=== PATIENT | female | born 1950 ===

== ENCOUNTER 2020-11-22 09:14 | Inpatient (IN) ==
--- NOTE | 2020-11-08 16:31 | PAT Medication Instructions ---
Medication Instructions Date of Service November 08, 2020 Home Medications ascorbic acid (vitamin C) [Vitamin C] 500 mg PO BID aspirin 325 mg PO QAM cholecalciferol (vitamin D3) [Vitamin D3] 50 mcg PO QAM propranolol 20 mg PO BID rosuvastatin [Crestor] 5 mg PO QPM turmeric root extract 500 mg PO QPM vitamin E 400 unit PO BID ASK your prescriber and surgeon aspirin 325 mg PO QAM STOP taking 2 weeks before surgery If surgery is within 2 weeks, stop taking as soon as possible. turmeric root extract 500 mg PO QPM vitamin E 400 unit PO BID DO NOT take the morning of surgery ascorbic acid (vitamin C) [Vitamin C] 500 mg PO BID cholecalciferol (vitamin D3) [Vitamin D3] 50 mcg PO QAM Take morning of surgery With a small sip of water, OTHERWISE NOTHING TO EAT OR DRINK AFTER MIDNIGHT: propranolol 20 mg PO BID Take evening before surgery ascorbic acid (vitamin C) [Vitamin C] 500 mg PO BID propranolol 20 mg PO BID rosuvastatin [Crestor] 5 mg PO QPM Other Notes If you have any questions please call us at [phone] or [phone] or [phone] or [phone]
--- NOTE | 2020-11-09 13:21 | Anesthesiology Consultation ---
Date of Service November 09, 2020 Assessment & Plan (1) Encounter for pre-operative examination: COVID Status: As of 11/09 assessment, patient denies travel to endemic area, known exposure/sick contacts, or symptoms of COVID19. Patient instructed that they and their household members must follow strict social distancing guidelines, wear a mask in public and avoid travel/events/gatherings for 14 days prior to surgery. Preoperative COVID19 testing to be completed prior to surgery per surgeon's arrangements (11/16). Patient made aware to self-isolate as much as possible between COVID testing and surgery. Pt is fully vaccinated. Chart Review Chart Review: Acceptable Risk for Surgery and Patient seen in Pre Admission T esting Teaching & Discussion Instructed NPO after midnight before surgery, except medications with 15 cc of water. Medication instructions provided according to the PAT guidelines. History Surgery Operation Date: 11/22/20 07:45 Proposed Procedures p L3-L5 Decompression Fusion, Spinal Cord Monitoring - Olu Nance, Height/Weight Height: 4 ft 11 in Weight: 61.6 kg Allergies Allergy/AdvReac Type Severity Reaction Status Date / Time No Known Allergies Allergy Verified 10/25/20 15:06 Medications Home Medications Medication Instructions Recorded Confirmed Last Taken ascorbic acid (vitamin C) [Vitamin 500 mg PO BID 10/25/20 10/25/20 Unknown C] aspirin 325 mg PO QAM 10/25/20 10/25/20 Unknown cholecalciferol (vitamin D3) 50 mcg PO QAM 10/25/20 10/25/20 Unknown [Vitamin D3] propranolol 20 mg PO BID 10/25/20 10/25/20 Unknown rosuvastatin [Crestor] 5 mg PO QPM 10/25/20 10/25/20 Unknown turmeric root extract 500 mg PO QPM 10/25/20 10/25/20 Unknown vitamin E 400 unit PO BID 10/25/20 10/25/20 Unknown Past Medical History Medical History History of cluster headache reason for propranolol History of migraine headaches HLD (hyperlipidemia) Osteoarthritis Spinal stenosis Exercise / Class Metabolic Activity II 4-5 Yardwork/Stairs/Walk up hill Past Family History Family History Son PONV (postoperative nausea and vomiting) Past Surgical History Surgical History History of hernia repair as a child History of hysterectomy with unilateral oophorectomy History of reduction of closed fracture LUE - as a child History of right-sided carotid endarterectomy History of wisdom tooth extraction S/P trigger finger release Status post carotid endarterectomy R side only. 2005. Past Anesthesia History No Hx of Anesthesia Complications and No Family Hx of Anesthesia Complications (other than son PONV) History of PONV No Hx of PONV and No Hx of Motion Sickness Social History Smoking Status: Current every day smoker tobacco type: cigarettes Smoking cigarettes per day: 1 ppd Do You Dip or Chew Tobacco: No Hx Alcohol Use: Yes Alcohol type: beer alcohol intake frequency: a few times a week Hx Substance Use: No substance use type: does not use Review of Systems Pt denies any recent chest pain, shortness of breath, palpitations, cough, fever, URI, or uncontrolled acid reflux. +seasonal allergies/congestion/itchy swollen eyes Physical Exam Vital Signs BP: 155/93 P: 69bpm SPO2: 96% RA T: 98.6 F R: 16 ENMT Mouth: + dental restorations (few crowns); no chipped teeth and no loose teeth Thyromental Distance: > or= 3.5 Finger Breadths Mallampati Class: II Neck + short neck; neck extension not limited Respiratory normal respiratory effort, lungs clear to auscultation Cardiovascular Rate/Rhythm: regular rate and regular rhythm (with occ ectopic beats) Heart Sounds: no murmur Vessels: no carotid bruit Extremities: no edema Testing Laboratory Results 11/09/20 13:27 11/09/20 13:27 PT 10.2 Seconds (9.0-12.0) 11/09/20 13: INR 1.0 (0.9-1.1) 11/09/20 13: APTT 26.8 Seconds (21.0-31.0) 11/09/20 13: Urine Color Yellow 11/09/20 13:27 Urine Appearance Clear (Clear) 11/09/20 13:27 Urine pH 6.0 (4.5-7.5) 11/09/20 13: Ur Specific [place] 1.013 (1.000-1.030) 11/09/20 13: Urine Protein Negative (Negative) 04/13/21 13:27 Urine Glucose (UA) Negative (Negative) 11/09/20 13:27 Urine Ketones Negative (Negative) 11/09/20 13:27 Urine Nitrite Negative (Negative) 11/09/20 13:27 Ur Leukocyte Esterase Negative (Negative) 11/09/20 13:27 Blood Type A Positive 11/09/20 13:27 Antibody Screen NEGATIVE 11/09/20 13:27 Electrocardiogram Date: 11/09/20 Findings: + NSR @ (63bpm) Chest X-Ray Date: 11/09/20 FINDINGS: PA and lateral chest radiographs are obtained. No prior studies are available for comparison at the time of dictation. The cardiomediastinal silhouette is unremarkable noting atherosclerotic calcification of the thoracic aorta. There is bibasilar scarring/atelectasis. Chronic interstitial thickening is similar to previous. No airspace consolidation or pleural effusion is identified. There is no pneumothorax. The skeletal structures are osteopenic. The bony thorax appears intact. Degenerative change is seen throughout the thoracic spine. Surgical clips are noted in the right neck. IMPRESSION: No active disease in the chest.
--- NOTE | 2020-11-09 14:05 | XRay Report ---
TWO VIEW CHEST CLINICAL HISTORY: Spinal stenosis. Preoperative examination. Hyperlipidemia. FINDINGS: PA and lateral chest radiographs are obtained. No prior studies are available for compariso n at the time of dictation. The cardiomediastinal silhouette is unremarkable noting atherosclerotic calcification of the thoracic aorta. There is bibasilar scarring/atelectasis. Chronic interstitial th ickening is similar to previous. No airspace consolidation or pleural effusion is identified. There i s no pneumothorax. The skeletal structures are osteopenic. The bony thorax appears intact. Degenerati ve change is seen throughout the thoracic spine. Surgical clips are noted in the right neck. IMPRESSION: No active disease in the chest. ACT 112: Negative or not required by law. Electronically signed by: Luis Miguel Dominguez M.D. 11/09/2020 2:04 PM
[2020-11-09 14:06] LABS: Basophils # (auto) 0.04 K/uL (0-0.2); Basophils % (auto) 0.6 %; Eosinophils # (auto) 0.31 K/uL (0-0.5); Eosinophils % (auto) 4.4 %; Hematocrit (blood only) 43.9 % (37-47); Hemoglobin 15.2 g/dL (12.0-16.0); Immature Granulocytes # (auto) 0.01 K/uL (0.00-0.02); Immature Granulocytes % (auto) 0.1 %; Lymphocytes # (auto) 1.85 K/uL (1.2-3.4); Lymphocytes % (auto) 26.4 %; Mean Corpuscular Hemoglobin 29.9 pg (25-34); Mean Corpuscular Hgb Conc 34.6 g/dL (32-36); Mean Corpuscular Volume 86.4 fL (80-100); Mean Platelet Volume 11.3 fL (7.4-10.4); Monocytes # (auto) 0.87 K/uL (0.11-0.59); Monocytes % (auto) 12.4 %; Neutrophils # (auto) 3.94 K/uL (1.4-6.5); Neutrophils % (auto) 56.1 %; Platelet Count 286 K/uL (130-400); RDW Standard Deviation 44.2 fL (36.4-46.3); Red Blood Count 5.08 M/uL (4.2-5.4); White Blood Count 7.02 K/uL (4.8-10.8)
[2020-11-09 14:19] LABS: Partial Thromboplastin Time 26.8 Seconds (21.0-31.0); Prothrombin Time 10.2 Seconds (9.0-12.0)
[2020-11-09 14:55] LABS: Appearance Urine Clear (Clear); Bilirubin Urine Negative (Negative); Blood Urine Negative (Negative); Color Urine Yellow; Glucose Urine UA Negative (Negative); Ketones Urine Negative (Negative); Leukocyte Esterase Urine Negative (Negative); Nitrite Urine Negative (Negative); Protein Urine Negative (Negative); Specific Gravity Urine 1.013 (1.000-1.030); Urobilinogen Urine Negative (Negative)
[2020-11-09 16:25] LABS: BUN Creatinine Ratio 27.5 (10-20); Calcium 8.9 mg/dl (8.5-10.1); Creatinine Clr Calc Pharmacy 88.3 ml/min; Est GFR (Non-African American) 100.1; Potassium 4.1 mmol/L (3.5-5.1)
--- NOTE | 2020-11-10 06:46 | Electrocardiogram Report ---
Test Reason : Blood Pressure : / mmHG Vent. Rate : 063 BPM Atrial Rate : 063 BPM P-R Int : 136 ms QRS Dur : 078 ms QT Int : 412 ms P-R-T Axes : 053 069 077 degrees QTc Int : 421 ms Normal sinus rhythm Normal ECG No previous ECGs available Confirmed by Cresencio Hernandez ([id number]) on 11/10/2020 6:46:30 AM Referred By: Olu Nance Confirmed By:Cresencio Hernandez
[~2020-11-22 09:14] MED LIST: ACETAMINOPHEN 500 MG TAB PO SCH; CeleBREX 200 MG CAP PO SCH; GABAPENTIN 300 MG CAP PO SCH; HYDROmorphone INJ 2 MG/ML SYR/VIAL ONE; LR 15ML/HR IV SCH; MIDAZOLAM HCL 1 MG/ML 2ML VIAL ONE; ceFAZolin 1000MG 1,000 MG/7.5 ML SYR IV SCH; fentaNYL citrate 100 MCG/2 ML VIAL ONE
--- NOTE | 2020-11-22 09:28 | History & Physical Bridge Note ---
Date of Service November 22, 2020 History & Physical Bridge Note I have examined the patient, reviewed the History & Physical and in the interval since the performance of the History & Physical I have noted the following changes of clinical significance: no changes noted
--- NOTE | 2020-11-22 09:30 | History & Physical Report ---
Date of Service November 22, 2020 Assessment & Plan (1) Neurogenic claudication due to lumbar spinal stenosis: Admission and Anticipated Discharge Date Admission Date: L3-L5 decompression fusion History of Present Illness Chief Complaint: Back and leg pain Primary Care Provider: Penny Mccloud MD This is a 70-year-old female presents with chronic persistent back and leg pain. Failing course of nonoperative care is here for surgical invention. Allergies Allergy/AdvReac Type Severity Reaction Status Date / Time No Known Allergies Allergy Verified 10/25/20 15:06 Home Medications Medication Instructions Recorded Confirmed Type ascorbic acid (vitamin C) [Vitamin 500 mg PO BID 10/25/20 10/25/20 History C] aspirin 325 mg PO QAM 10/25/20 10/25/20 History cholecalciferol (vitamin D3) 50 mcg PO QAM 10/25/20 10/25/20 History [Vitamin D3] propranolol 20 mg PO BID 10/25/20 10/25/20 History rosuvastatin [Crestor] 5 mg PO QPM 10/25/20 10/25/20 History turmeric root extract 500 mg PO QPM 10/25/20 10/25/20 History vitamin E 400 unit PO BID 10/25/20 10/25/20 History Past Med/Surg History Medical History History of cluster headache reason for propranolol History of migraine headaches HLD (hyperlipidemia) Osteoarthritis Spinal stenosis Surgical History History of hernia repair as a child History of hysterectomy with unilateral oophorectomy History of reduction of closed fracture LUE - as a child History of right-sided carotid endarterectomy History of wisdom tooth extraction S/P trigger finger release Status post carotid endarterectomy R side only. 2005. Family History Son PONV (postoperative nausea and vomiting) Social History Smoking Status: Current every day smoker Cigarettes Per Day: 1 ppd; Second Hand Exposure: Yes (as a child); Do You Dip or Chew Tobacco: No; Tobacco Cessation Education Requested by Patient: No Hx Alcohol Use: Yes Alcohol type: beer Hx Substance Use: No Preferred Language: Romanian Communication Ability: Effective Table Operator Required: No Beliefs That Will Affect Care: None Current Living Situation: Alone Feels Safe at Home: Yes Safety Concerns: Feels Safe At This Time Assistive Devices: Glasses Physical Exam Physical Exam: Patient is alert and oriented Heart regular in rhythm Lungs clear to auscultation
[2020-11-22] MEDS ORDERED: BUPIVACAINE/EPINEPHRINE 0.5% MPF 1:200,000 30 ML VIAL ONE (09:39)
[2020-11-22] MEDS ORDERED: ALBUMIN HUMAN 5% 12.5 GM/250 ML VIAL IV ONE (09:41)
[2020-11-22] MEDS ORDERED: HYDROmorphone INJ 1 MG/ML SYRINGE IV PRN ×2 (09:47→14:24)
[2020-11-22] MEDS ORDERED: ePHEDrine sulfate 50 MG/ML AMP IV PRN (09:47)
[2020-11-22] MEDS ORDERED: ONDANSETRON INJ 2 MG/ML 2 ML VIAL IV PRN ×2 (09:47→14:24)
[2020-11-22] MEDS ORDERED: ATROPINE SULFATE 0.1 MG/ML 10ML SYR IV PRN (09:47)
[2020-11-22] MEDS ORDERED: FLOSEAL HEMOSTATIC MATRIX 10ML TOP ONE (10:42)
[2020-11-22] MEDS ORDERED: LARYING-O-JET KIT (LTA) ONE (10:49)
[2020-11-22] MEDS ORDERED: DEXAMETHASONE SOD INJ 4 MG/ML VIAL ONE (10:49)
[2020-11-22] MEDS ORDERED: LIDOCAINE HCL 2% 2 ML VIAL/AMP(20MG/ML) INFIL ONE (10:49)
[2020-11-22] MEDS ORDERED: ePHEDrine sulfate 50 MG/ML AMP ONE (10:49)
[2020-11-22] MEDS ORDERED: ROCURONIUM BROMIDE 10 MG/ML 5 ML VIAL IV ONE (10:49)
[2020-11-22] MEDS ORDERED: NEOSTIGMINE METHYLSULFATE 1 MG/ML 10ML VIAL ONE (10:49)
[2020-11-22] MEDS ORDERED: PROPOFOL IV EMULSION 10 MG/ML 20 ML VIAL IV ONE (10:49)
[2020-11-22] MEDS ORDERED: ONDANSETRON INJ 2 MG/ML 2 ML VIAL ONE (10:49)
[2020-11-22] MEDS ORDERED: GLYCOPYRROLATE 0.2 MG/ML VIAL ONE (10:49)
[2020-11-22] MEDS ORDERED: ceFAZolin 1000MG 1,000 MG/7.5 ML SYR IV STA (10:55)
--- NOTE | 2020-11-22 12:32 | Operative Report ---
Post Operative Report Pre & Post Diagnosis Operation Date: 11/22/20 10:35 Pre-Op Diagnosis: Spinal Stenosis, Lumbar Region with Neurogenic Claudication Spondylolisthesis L4-L5 Post-Op Diagnosis: Same I identified the patient and participated in the time-out.: Yes Procedure Operation Date: 11/22/20 10:35 Actual Procedures #1 lumbar decompression with bilateral medial facetectomies and foraminotomies L2-3, L3-4 and L4-5. #2 posterior spinal fusion L3-4 L4-5. #3 placement of posterior instrumentation L3-4 and L4-5. #4 interbody fusion L3-4 and L4-5. #5 placement peek cage 8 x 22 mm at L3-4 and 10 x 22 mm at L4-5. #6 placement locally harvested morselized autograft in the posterior lateral gutters. #7 placement of I factor in the interbody cages and infuse collagen sponge, master graft in the posterior lateral gutters. Surgeon Olu Nance, Flat Examiner Elayne Maddox Estimated Blood Loss 300 Findings Consistent with Post-Op Diagnosis Specimens None Indications This is a 70-year-old female presents with above-mentioned diagnosis after failing course of nonoperative care is here for the above-mentioned procedure. Description of Procedure Patient was met with identified informed consent obtained. Patient was then taken to the operative suite underwent an patient placed in a prone position on the Ben table on top of the Raji frame. All bony prominences well-padded eyes inspected to ensure no external pressure placed upon the. This point the lumbar spine was prepped and draped in a sterile fashion. Sharp dissection with the assistance of Bovie cautery was performed down to and exposing the lamina and transverse processes of L3-L4 and L5 bilaterally. From caudal to cephalad fashion complete laminectomy of L4 L3 and partial laminectomy of L2 was performed including bilateral medial facetectomies and foraminotomies addressing severe spinal stenosis. Pedicle screws were then placed in L3-L4 and L5 bilaterally with assistance of fluoroscopy and appropriate sized oscar placed. By way of a transforaminal approach on right a complete discectomy of L4-5 was performed endplates curetted to subcortical bleeding bone and a 10 x 22 mm peek cage filled with I factor tapped in position. Then proceeded to L3-L4. Again by way of a transforaminal approach on right a complete discectomy was performed endplates curetted to subcortical being bone and an 8 x 22 mm peek cage filled with I factor tapped into position. The rods were then locked into final position bilaterally. The transverse processes of L3 3 L4 and L5 burred to subcortical bleeding bone. Infuse collagen sponge master graft and local autograft was placed in the posterior lateral gutters. 15 round MIRI drain inserted. The incision was then closed with 1 Vicryl the fascia 2-0 Vicryl subcutaneously and 4 Monocryl for final skin closure. Steri-Strips dressings placed. Patient will continue PACU stable condition. Please note Elayne Maddox was present throughout the procedure involved in patient positioning complex portions of the surgery. Lastly spinal cord monitoring was utilized at the procedure no changes noted. I attest to the content of the Intraoperative Record and any orders documented therein. Any exceptions are noted below.
--- NOTE | 2020-11-22 12:45 | Fluoroscopy Report ---
FL lumbar spine 2-3V CLINICAL HISTORY: L3-L5 DECOMPRESSION AND FUSION COMPARISON STUDY: FLUOROSCOPY TIME: 22nd. NUMBER OF FLUOROSCOPIC IMAGES: 2 FINDINGS: 2 intraoperative fluoroscopic spot images demonstrate postsurgical changes of an L3-4, and L4-5 discectomy and interbody fusion. There is posterior spinal fusion with pedicle screws and adjoin ing spinal rods. IMPRESSION: Postsurgical changes of an L3-5 spinal decompression and fusion. ACT 112: Negative or not required by law. Electronically signed by: Camden Mcnulty M.D. 11/22/2020 12:44 PM
[2020-11-22] MEDS: fentaNYL citrate 100 MCG/2 ML VIAL IV PRN ×4 (12:59→13:14)
--- NOTE | 2020-11-22 13:23 | Anesthesiology Progress Note ---
Date of Service November 22, 2020 Anesthesia Post Procedure Vital Signs Vital Signs: Temp Pulse Pulse Resp BP Pulse Ox 11/22/20 13:10 73 12 115/71 94 11/22/20 13:00 66 12 120/64 95 11/22/20 12:50 74 14 119/62 95 11/22/20 12:43 36.2 C L 81 16 110/58 L 96 11/22/20 10:01 36.9 C 75 18 168/87 H 97 Pain Intensity Back: Pain Intensity: 5 Transfer of Care Handoff Completed per policy Notes Mental Status: alert / awake / arousable and participated in evaluation Patient Amnestic to Procedure: Yes Nausea / Vomiting: adequately controlled Pain: adequately controlled Airway Patency, RR, SpO2: stable & adequate BP & HR: stable & adequate Hydration State: stable & adequate Anesthetic Complications: no major complications apparent and Pt Satisfied with anesthetic care
[2020-11-22] MEDS ORDERED: LORazepam 0.5 MG TAB PO PRN (14:24)
[2020-11-22] MEDS ORDERED: METOCLOPRAMIDE HCL INJ 5 MG/ML 2 ML VIAL IV PRN (14:24)
[2020-11-22] MEDS ORDERED: FAMOTIDINE 20 MG TAB PO PRN (14:24)
[2020-11-22] MEDS ORDERED: PROMETHAZINE HCL 12.5 MG in SODIUM CHLORIDE 0.9% 50 ML IV PRN (14:24)
[2020-11-22] MEDS ORDERED: ACETAMINOPHEN 500 MG TAB PO PRN (14:24)
[2020-11-22] MEDS ORDERED: MAGNESIUM HYDROXIDE SUSP 30 ML UDC PO PRN (14:24)
[2020-11-22] MEDS ORDERED: ONDANSETRON 4 MG OD TAB PO PRN (14:24)
[2020-11-22] MEDS ORDERED: DO NOT ADMINISTER PNEUMOCOCCAL VACCINE PRN (14:24)
[2020-11-22] MEDS ORDERED: traMADol HCL 50 MG TABLET PO PRN (14:24)
[2020-11-22] MEDS ORDERED: diphenhydrAMINE Capsule 25 MG CAP PO PRN (14:24)
[2020-11-22] MEDS ORDERED: ACETAMINOPHEN 1,000 MG/100 ML VIAL IV PRN (14:24)
[2020-11-22] MEDS ORDERED: DO NOT ADMINISTER FLU VACCINE PRN (14:24)
[2020-11-22] MEDS ORDERED: LORazepam 0.5 MG/1 ML VIAL IV PRN (14:24)
[2020-11-22] MEDS ORDERED: bisacodyL 10 MG SUPP PR PRN (14:24)
[2020-11-22] MEDS ORDERED: SOD PHOSPHATE/SOD BIPHOSPHATE ENEMA 132 ML BTL PR PRN (14:24)
[2020-11-22] MEDS ORDERED: ALUMINUM/MAGNESIUM SUSP 30 ML UDC PO PRN (14:24)
[2020-11-22] MEDS ORDERED: NALOXONE HCL 0.4 MG/1 ML VIAL/CARP IV PRN (14:24)
[2020-11-22] MEDS ORDERED: HYDROmorphone INJ 0.5 MG/0.5 ML SYR IV PRN (14:24)
[2020-11-22] MEDS ORDERED: hydrOXYzine HCl 25 MG TAB PO PRN (14:24)
[2020-11-22] MEDS: SODIUM CHLORIDE 0.9% 1000ML 1,000 ML IV SCH ×2 (14:51→21:38)
[2020-11-22] MEDS ORDERED: COUGH DROP (SUGAR FREE) LOZ 24 LOZ/1 BOX BUCCAL ONE (16:19)
[2020-11-22] MEDS: oxyCODONE HCL IR 5 MG TAB (IMMEDIATE RELEASE) PO PRN ×3 (17:07→23:12)
--- NOTE | 2020-11-22 18:58 | Hospitalist Progress Note ---
Date of Service November 22, 2020 Assessment & Plan (1) Neurogenic claudication due to lumbar spinal stenosis: Postop from spine surgery. Pain appears to be well controlled, otherwise management per orthopedics. PT/OT eval and treat. carotid artery disease by historyseems to be long stable. Discussed with patient that typically evidence favors 81 mg aspirin for vascular disease, and that there is not much of a role for 325 anymore. To that end when it is safe with Ortho to resume her aspirin, I did recommend starting at 81 mg instead. Migraine/cluster headachescontinue propranolol Hyperlipidemiacontinue Crestor DVT prophylaxisper orthopedics Medically appears quite stable, will sign off at this time, available if needed for any medical issues that might arise, please do not hesitate to contact me thank you Admission and Anticipated Discharge Date Admission Date: November 22, 2020 Subjective Feeling pretty good postop. Not a lot of pain, although she is afraid to move around much. Notes her headaches have been under pretty reasonable control lately. Notes that she takes a 325 mg aspirin dating back to what sounds to have been a carotid endarterectomy in about 2006she notes then she had a lot of bruising from Plavix and her doctor at the time stop the Plavix and started her on a 325 aspirin, which she has been on ever since. No other new complaints. Review of Systems Review of Systems: All systems reviewed & are unremarkable except as noted in HPI & below Physical Exam Physical Exam: General she is awake and alert pleasant no distress. HEENT normocephalic atraumatic mucous membranes moist. Breathing unlabored no accessory muscle use good effort. Skin shows no rashes no pallor or icterus. Neuro shows no focal deficits. Mental status shows good recent and remote recall normal mood and affect. Results & Data Results & Data ([facility]) Vital Signs (Past 12 Hours) Vital Signs Temp Pulse Pulse Pulse Resp BP Pulse Ox 11/22/20 18:15 98.4 F 84 18 130/70 94 11/22/20 17:15 97.7 F 67 18 138/82 95 11/22/20 16:45 97.7 F 77 18 116/73 96 11/22/20 14:54 97.9 F 68 16 126/72 98 11/22/20 14:27 97.9 F 62 16 122/68 98 11/22/20 14:10 97.3 F L 80 21 117/68 97 11/22/20 14:00 97.3 F L 55 L 14 129/81 95 11/22/20 13:50 97.3 F L 62 14 139/80 97 11/22/20 13:40 97.3 F L 80 14 142/78 H 97 11/22/20 13:30 97.3 F L 55 L 14 140/78 94 11/22/20 13:20 97.3 F L 56 L 12 138/79 96 11/22/20 13:10 73 12 115/71 94 11/22/20 13:00 66 12 120/64 95 11/22/20 12:50 74 14 119/62 95 11/22/20 12:43 97.2 F L 81 16 110/58 L 96 11/22/20 10:01 98.4 F 75 18 168/87 H 97 PG Care Time/CCT Total # of Minutes Spent Total Time Spent with Patient: Total time spent is greater than 50% in coordination of care (as documented) at patient's floor/unit and/or counseling patient: Coding Level of Care Code 43583 Subseq Hosp Care Lvl 2 Diagnoses Neurogenic claudication due to lumbar spinal stenosis M48.062
[2020-11-22] MEDS: ceFAZolin 1000MG 1,000 MG/7.5 ML SYR IV SCH (19:13)
[2020-11-22] MEDS: ASCORBIC ACID 500 MG TAB PO SCH (21:38)
[2020-11-22] MEDS: DOCUSATE SODIUM/SENNA 50/8.6MG TAB PO SCH (21:38)
[2020-11-22] MEDS: ROSUVASTATIN CALCIUM 5 MG TAB PO SCH (21:40)
[2020-11-22] MEDS: PROPRANOLOL HCL 20 MG TAB PO SCH (21:40)
[2020-11-23] MEDS: ceFAZolin 1000MG 1,000 MG/7.5 ML SYR IV SCH (02:48)
[2020-11-23] MEDS: POLYETHYLENE (MIRALAX) 17 GM PACK PO SCH ×4 (05:50→23:08)
[2020-11-23 07:00] LABS: Basophils # (auto) 0.01 K/uL (0-0.2); Basophils % (auto) 0.1 %; Eosinophils # (auto) 0.01 K/uL (0-0.5); Eosinophils % (auto) 0.1 %; Hematocrit (blood only) 35.6 % (37-47); Hemoglobin 11.8 g/dL (12.0-16.0); Immature Granulocytes # (auto) 0.04 K/uL (0.00-0.02); Immature Granulocytes % (auto) 0.2 %; Lymphocytes # (auto) 1.25 K/uL (1.2-3.4); Lymphocytes % (auto) 7.4 %; Mean Corpuscular Hemoglobin 28.9 pg (25-34); Mean Corpuscular Hgb Conc 33.1 g/dL (32-36); Mean Platelet Volume 11.5 fL (7.4-10.4); Monocytes # (auto) 1.25 K/uL (0.11-0.59); Monocytes % (auto) 7.4 %; Neutrophils # (auto) 14.22 K/uL (1.4-6.5); Neutrophils % (auto) 84.8 %; Platelet Count 234 K/uL (130-400); RDW Coefficient of Variation 13.6 % (11.5-14.5); RDW Standard Deviation 43.4 fL (36.4-46.3); Red Blood Count 4.09 M/uL (4.2-5.4); White Blood Count 16.78 K/uL (4.8-10.8)
[2020-11-23 07:29] LABS: BUN Creatinine Ratio 18.3 (10-20); Calcium 8.1 mg/dl (8.5-10.1); Creatinine Clr Calc Pharmacy 70.2 ml/min; Est GFR (African American) 107.8
[2020-11-23] MEDS: PROPRANOLOL HCL 20 MG TAB PO SCH ×2 (08:52→19:51)
[2020-11-23] MEDS: ASPIRIN 325 MG ECTAB PO SCH (08:52)
[2020-11-23] MEDS: CHOLECALCIFEROL 1,000 UNITS 25 MCG TAB PO SCH (08:52)
[2020-11-23] MEDS: oxyCODONE HCL IR 5 MG TAB (IMMEDIATE RELEASE) PO PRN ×4 (08:53→22:27)
[2020-11-23] MEDS: ASCORBIC ACID 500 MG TAB PO SCH ×2 (08:53→19:52)
--- NOTE | 2020-11-23 11:33 | Orthopedic Progress Note ---
Date of Service November 23, 2020 Assessment & Plan (1) Neurogenic claudication due to lumbar spinal stenosis: Admission and Anticipated Discharge Date Admission Date: November 22, 2020 This time continue physical therapy monitor her MIRI operatively discharge home next few days. Subjective Back pain is controlled leg symptoms markedly improved. Physical Exam Physical Exam: Patient is distracted testing peers comfortable. Results & Data ([facility]) Vital Signs (Past 12 Hours) Vital Signs Temp Pulse Pulse Resp BP Pulse Ox 11/23/20 11:17 36 C L 54 L 16 118/69 93 11/23/20 07:32 36.8 C 68 16 111/69 92 11/23/20 03:16 36.6 C 60 16 113/66 93
[2020-11-23] MEDS: ROSUVASTATIN CALCIUM 5 MG TAB PO SCH (19:51)
[2020-11-23] MEDS: DOCUSATE SODIUM/SENNA 50/8.6MG TAB PO SCH (20:22)
[2020-11-24] MEDS: oxyCODONE HCL IR 5 MG TAB (IMMEDIATE RELEASE) PO PRN ×3 (03:40→12:42)
[2020-11-24] MEDS: POLYETHYLENE (MIRALAX) 17 GM PACK PO SCH ×2 (05:45→12:43)
[2020-11-24] MEDS: ASCORBIC ACID 500 MG TAB PO SCH (08:00)
[2020-11-24] MEDS: ASPIRIN 325 MG ECTAB PO SCH (08:00)
[2020-11-24] MEDS: CHOLECALCIFEROL 1,000 UNITS 25 MCG TAB PO SCH (08:01)
[2020-11-24] MEDS: PROPRANOLOL HCL 20 MG TAB PO SCH (08:03)
[2020-11-24] MEDS ORDERED: dexAMETHasone 6 MG in SYRINGE 0 ML IV SCH (09:00)
--- NOTE | 2020-11-24 10:47 | Discharge Summary ---
Date of Service November 24, 2020 Admission HPI Per Admitting Provider This is a 70-year-old female presents with chronic persistent back and leg pain. Failing course of nonoperative care is here for surgical invention. Principal Diagnosis Lumbar spinal stenosis with neurogenic claudication Discharge Data Allergies Allergy/AdvReac Type Severity Reaction Status Date / Time No Known Allergies Allergy Verified 11/22/20 09:49 Consultations 11/22/20 14:24 Consult Hospitalist Routine Procedures Performed Operation Date: 11/22/20 10:35 Actual Procedures p L3-L5 Decompression Fusion, Interbody Cage L3-L4 and L4-L5; Spinal Cord Monitoring - Olu Nance DO Ordered Studies 11/22/20 10:35 FL lumbar spine 2-3V Routine Hospital Course (1) Neurogenic claudication due to lumbar spinal stenosis: Patient with lumbar decompression fusion tolerates well second orthopedic for postop labor postop day 1 she was up mainly because postop day #2 on postop MIRI drain decreasing probably. Excellent strength testing. Pain well controlled. Subsequent discharge home. Discharge orders and instructions found the chart for further review. Total Time Total Time Spent Total Time Spent (In Minutes): 20 minutes Discharge Plan Discharge Items Patient Disposition: Home - Self-Care Reason For Visit: Spinal Stenosis, Lumbar Region with Neurogenic Discharge Diagnosis: Lumbar spinal stenosis with neurogenic claudication Activity: As commented below Non-emergency contact: Primary Care Provider Call non-emergency contact if: you have any medication questions Follow-up/Referrals: Penny Mccloud MD [Primary Care Provider] - Diet: Regular Ambulatory Orders: Basic Metabolic Panel (Routine) Timeframe: 20201109 Location: Determined by Patient Ordered By: Olu Nance Complete Blood Count with Diff (Routine) Timeframe: 20201109 Location: Determined by Patient Ordered By: Olu Nance XR chest 2V PA/lateral (Routine) Timeframe: 20201109 Location: Determined by Patient Ordered By: Olu Nance ECG 12 lead EKG (Routine) Timeframe: 20201109 Location: Determined by Patient Ordered By: Olu Nance Prothrombin Time INR (Routine) Timeframe: 20201109 Location: Determined by Patient Ordered By: Olu Nance Partial Thromboplastin Time (Routine) Timeframe: 20201109 Location: Determined by Patient Ordered By: Olu Nance Type and Screen (Routine) Timeframe: 20201109 Location: Determined by Patient Ordered By: Olu Nance Urine rflx Micros+Cult if Ind (Routine) Timeframe: 20201109 Location: Determined by Patient Ordered By: Olu Nur Attending Provider Instructions: ACTIVITY RECOMMENDATIONS: SELF CARE INSTRUCTIONS AFTER THORACIC/LUMBAR FUSIONS 1. You may walk to your tolerance. It is good exercise for your legs and back. Expect some back and intermittent leg aches and pains. 2. You may perform "counter-top" level activities (make a sandwich, derek with a project, etc.). 3. No bending or lifting of more than 10 pounds or back twisting of any nature (roll like a log when turning in bed). 4. You may ride in a car for 20-30 minutes at a time. No driving until after your first visit with your doctor. 5. Frequent changes of position and restricting sitting to 30 minutes at a time will help limit the amount of back spasms and stiffness you may experience. 6. You may discontinue the use of ambulatory aids (cane, crutches, etc.) once your strength and confidence allow. 7. 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 Do not take a tub bath, sit in a hot tub or go into a swimming pool until after your first recheck in the office. SPECIAL CARE INSTRUCTIONS: VERY IMPORTANT TO READ AND REVIEW A. Your surgical incision has been closed with a cosmetic suture under the skin that will dissolve in about 6 weeks. In 14 days, you can use a pair of clean scissors and cut the suture that is left outside of the skin at the ends of your incision. 1. The small skin tapes can be removed 7 days after surgery if they have not fallen off by that point. 2. You may keep the wound open to air as much as possible to promote healing after post-op day number 5 unless told otherwise by your doctor. 3. If you think the wound looks like it is becoming infected (redness or worsening drainage) and/or you are experiencing fever, chill or worsening back pain and muscle spasms, contact the office so that we may evaluate you as soon as possible. B. Complications are uncommon, but please contact us if you have any signs or symptoms of: 1. wound infection (fever higher than 102.5 degrees F, redness, separation of wound, drainage, or increasing pain from the incision) 2. blood clots in legs (pain, swelling, redness and warmth in legs) 3. urinary tract infection (fever higher than 102.5 degrees F, burning upon urination or increased frequency of urination) 4. nerve problems (inability to walk on your toes or heels, numbness, loss of bowel or bladder control) 5. any other symptoms that concern you C. Please call the office at if you have any concerns or questions about your operation or recovery. D. No smoking! Smoking drastically decreases the chance of a solid fusion. E. Do not take any anti-inflammatory medications (Indocin, Advil, Motrin, Aspirin, Naprosyn, etc.) as these may inhibit the chance of a solid fusion. Tylenol is okay to take for pain. MANAGING PAIN AFTER SPINAL SURGERY 1. Narcotic medication is intended for short-term use and will be provided for surgical pain. Surgical pain usually lasts for a period of 4-6 weeks. Narcotic medication includes Percocet, Vicodin, Darvocet, Tylenol #3 or Lortab. 2. Longer-term pain is more appropriately treated with non-narcotic medication such as Tylenol ES. 3. Muscle spasm is not appropriately treated with narcotics. Muscle relaxers such as Soma, Flexeril or Skelaxin can be used along with Tylenol ES. 4. Remember that we all live with some "aches and pains". This is not unusual or uncommon after an injury or as we get older. a. Back pain is expected and may include muscle spasms for 4 to 6 weeks a fter surgery. The pain should gradually improve. If the pain worsens for no apparent reason, please contact the office. b. Intermittent leg pain may also be experienced and should not be concerned about unless it worsens for no apparent reason. If so, please contact the office. 5. We will provide appropriate medication within the normal guidelines of their prescribed use. We will also be very cautious and aware of potential abuse and extended duration of patients' medication needs. a. Pain medications are for your comfort and to assist with sleep and rest so that the tissue can heal. They are not provided in order to return to normal activity and should not be used through the day. To do so or worsening pain at night can result from ongoing tissue damage and development of tolerance to the prescribed medicine. 6. Please allow 2-3 days to process refills. Prescriptions will not be mailed but must be picked up at the office. FOLLOW UP VISIT: Keep your scheduled follow-up appointment. Any questions, please call the office at . Pending Studies at Discharge: No Stand-Alone Forms: My [facility]Maze[facility], Smoking Cessation Medications and DC Order Prescriptions: New oxycodone 5 mg tablet 5 mg PO Q6H PRN (Reason: pain, severe) Qty: 30 RF: 0 tramadol 50 mg tablet 50 mg PO Q6H PRN (Reason: pain, moderate) Qty: 30 RF: 0 Continued aspirin 325 mg Tablet 325 mg PO QAM RF: 0 ascorbic acid (vitamin C) [Vitamin C] 500 mg Tablet 500 mg PO BID RF: 0 propranolol 20 mg Tablet 20 mg PO BID RF: 0 vitamin E 400 unit Capsule 400 unit PO BID RF: 0 rosuvastatin [Crestor] 5 mg Tablet 5 mg PO QPM RF: 0 cholecalciferol (vitamin D3) [Vitamin D3] 50 mcg (2,000 unit) Capsule 50 mcg PO QAM RF: 0 turmeric root extract 500 mg Capsule 500 mg PO QPM RF: 0 Discharge Orders: Discharge Order (Routine); Ordered 11/24/20 Ordered By: Olu Nance Admission Data Admit Date/Time: 11/22/20 12:41 Attending Provider: Oul Nance Admit Provider: Olu Nance Primary Care Provider: Penny Mccloud Other Providers: Desmond Villegas
== END 2020-11-24 14:35 | disposition home or self-care (01) | DRG 455 ==
LOC: ASU 09:14 → PACUINP 12:41 → 3E 16:16